=== PATIENT | female | born 1970 | race Caucasian/White ===

== ENCOUNTER 2021-10-05 08:57 | Emergency (ER) | payer OTHER ==
[~2021-10-05] VITALS: Ht 160 cm; Wt 70.3 kg
[~2021-10-05 08:57] MED LIST: AMLODIPINE BESY10 MG PO; CARAFATE 1 GM TA1 GM PO; FLOMAX0.4 MG PO; LEVO-T75 MCG PO; LEVOTHYROXIN0.075 MG PO; LIPITOR40 MG PO; OMEPRAZOLE40 MG PO; PERCOCET 5-3251 EACH PO; PRINIVIL20 MG PO; ZOFRAN ODT4 MG PO
[2021-10-05 09:07] VITALS: BP 162/82
[2021-10-05 10:26] LABS: BASOPHILS 0.3 % (0.0-2.0); EOSINOPHILS 1.1 % (0.0-3.0); HEMATOCRIT 41.3 % (37.0-47.0); HEMOGLOBIN 13.6 gm/dL (12.0-15.0); LYMPHOCYTES 15.5 % (24.0-44.0); MCH 29.4 pg (26.0-34.0); MCHC 32.8 g/dL (28.0-37.0); MCV 89.5 fL (80.0-100.0); MONOCYTES 4.6 % (1.0-8.0); PLATELET COUNT 320 thou/uL (150-400); POLYS 78.5 % (36.0-66.0); RBC 4.61 mil/uL (4.20-5.00); RDW 12.9 % (10.5-14.5)
[2021-10-05 10:31] LABS: CALCIUM 9.3 mg/dL (8.5-10.1); CREATININE 0.7 mg/dL (0.6-1.0); POTASSIUM 3.9 mmol/L (3.5-5.1)
--- NOTE | 2021-10-05 14:26 | EKG ---
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
== END 2021-10-05 11:51 | disposition home or self-care (01) ==
LOC: ER 08:57
PROVIDERS: Student in an Organized Health Care Education/Training Program
DX: M25.512 Pain in left shoulder (principal); R07.89 Other chest pain; I10 Essential (primary) hypertension; E78.5 Hyperlipidemia, unspecified; K21.9 Gastro-esophageal reflux disease without esophagitis; E03.9 Hypothyroidism, unspecified; F17.210 Nicotine dependence, cigarettes, uncomplicated; Z87.442 Personal history of urinary calculi; Z79.899 Other long term (current) drug therapy

== ENCOUNTER 2021-10-08 21:16 | Emergency (ER) | payer OTHER ==
[~2021-10-08] VITALS: Ht 160 cm; Wt 68.0 kg
[2021-10-08 23:21] VITALS: BP 187/89
== END 2021-10-08 23:22 | disposition home or self-care (01) ==
LOC: ER 21:16
DX: G44.209 Tension-type headache, unspecified, not intractable (principal); I10 Essential (primary) hypertension; E78.5 Hyperlipidemia, unspecified; K21.9 Gastro-esophageal reflux disease without esophagitis; E03.9 Hypothyroidism, unspecified; F17.210 Nicotine dependence, cigarettes, uncomplicated; Z87.442 Personal history of urinary calculi; Z79.899 Other long term (current) drug therapy; Z79.891 Long term (current) use of opiate analgesic

== ENCOUNTER 2021-12-09 09:36 | Emergency (ER) | payer OTHER ==
[~2021-12-09] VITALS: Ht 160 cm; Wt 70.3 kg
[2021-12-09 10:00] LABS: BASOPHILS 0.3 % (0.0-2.0); EOSINOPHILS 1.2 % (0.0-3.0); HEMATOCRIT 42.8 % (37.0-47.0); HEMOGLOBIN 14.4 gm/dL (12.0-15.0); LYMPHOCYTES 23.9 % (24.0-44.0); MCHC 33.8 g/dL (28.0-37.0); MCV 88.9 fL (80.0-100.0); MONOCYTES 6.2 % (1.0-8.0); PLATELET COUNT 304 thou/uL (150-400); POLYS 68.4 % (36.0-66.0); RBC 4.81 mil/uL (4.20-5.00); RDW 13.9 % (10.5-14.5); WBC 11.8 thou/uL (4.0-11.0)
[2021-12-09 10:01] LABS: URINE BILIRUBIN NEGATIVE (Negative); URINE BLOOD 1+ (Negative); URINE CLARITY CLEAR; URINE COLOR YELLOW; URINE GLUCOSE-RANDOM* NEGATIVE (Negative); URINE KETONES NEGATIVE (Negative); URINE LEUKOCYTES-REFLEX NEGATIVE (Negative); URINE NITRITE-REFLEX NEGATIVE (Negative); URINE PROTEIN (DIPSTICK) NEGATIVE (Negative); URINE UROBILINOGEN 0.2 E.U./dl (0.2-1.0)
[2021-12-09 10:08] LABS: CALCIUM 9.5 mg/dL (8.5-10.1); CREATININE 0.8 mg/dL (0.6-1.0); POTASSIUM 3.9 mmol/L (3.5-5.1)
[2021-12-09 10:13] LABS: ALBUMIN 4.1 g/dL (3.4-5.0); TOTAL BILIRUBIN 0.6 mg/dL (0.2-1.0); TOTAL PROTEIN 7.8 g/dL (6.4-8.2)
[2021-12-09 10:22] LABS: BACTERIA-REFLEX None Seen /HPF (None Seen); CASTS None Seen /LPF (None Seen); CRYSTALS None Seen /LPF (None Seen); SQUAMOUS 0-3 Few /LPF (0-3); URINE RBC 1-2 Rare /HPF (NONE SEEN); URINE WBC-REFLEX 0-5 Rare /HPF (0-5)
[2021-12-09 12:10] VITALS: BP 150/80
--- NOTE | 2021-12-10 07:40 | EKG ---
[place] [place] [address] [employer] [facility] [place] [address] ELECTROCARDIOGRAM REPORT Name: BRODIE FERRELL [facility] [id number] Admission: 12/09/21 Attend Phys: Discharge: 12/09/21 Date of : 70 Report #: [id number] 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
== END 2021-12-09 12:10 | disposition home or self-care (01) ==
LOC: ER 09:36
PROVIDERS: Emergency Medicine
DX: U07.1 COVID-19 (principal); R10.816 Epigastric abdominal tenderness; R07.89 Other chest pain; G47.00 Insomnia, unspecified; I10 Essential (primary) hypertension; K21.9 Gastro-esophageal reflux disease without esophagitis; E03.9 Hypothyroidism, unspecified; F17.210 Nicotine dependence, cigarettes, uncomplicated; Z87.442 Personal history of urinary calculi